=== PATIENT | female | born 1990 | race Caucasian/White ===

== ENCOUNTER 2018-08-24 06:29 | Day surgery (SDC) | payer MEDICAID ==
[~2018-08-24 06:29] MED LIST: CEFAZOLIN 2 GM/50 ML (PMX) 50 ML IVPB
[2018-08-24] MEDS ORDERED: GLYCOPYRROLATE 0.4 MG INJ (07:00)
[2018-08-24] MEDS ORDERED: NEOSTIGMINE 3 MG/3 ML SYRINGE (07:00)
[2018-08-24] MEDS ORDERED: BUPIVACAINE 0.25%/EPI (SDV) 10 ML INJ (07:02)
[2018-08-24] MEDS ORDERED: MIDAZOLAM 1 MG/ML 2 ML INJ (07:46)
[2018-08-24] MEDS ORDERED: FENTAnyl 50 MCG/ML VIAL (07:46)
[2018-08-24] MEDS ORDERED: ROCURONIUM 50 MG INJ (07:46)
[2018-08-24] MEDS ORDERED: PROPOFOL 20 ML (07:46)
[2018-08-24] MEDS ORDERED: LIDOCAINE 1% (MDV) 20 ML INJ (07:46)
[2018-08-24] MEDS ORDERED: ROPIVACAINE 0.5 % 30 ML VIAL (07:49)
[2018-08-24] MEDS ORDERED: ONDANSETRON 4 MG INJ (08:10)
[2018-08-24] MEDS ORDERED: CEFAZOLIN 1 GM INJ (08:10)
[2018-08-24] MEDS: LACTATED RINGER'S 1,000 ML IV* ×2 (08:39→09:00)
[2018-08-24] MEDS ORDERED: FLUMAZENIL 0.5 MG INJ (08:55)
[2018-08-24] MEDS ORDERED: NALOXONE (0.4 MG/ML) INJ (08:57)
[2018-08-24] MEDS ORDERED: KETOROLAC 30 MG INJ IM (10:19)
== END 2018-08-24 11:20 | disposition home or self-care (01) ==
LOC: SDS 06:29
DX: Z30.2 Encounter for sterilization (principal)
CPT/HCPCS: 58670